=== PATIENT | male | born 1980 | race Caucasian/White ===

== ENCOUNTER 2019-12-31 17:04 | Emergency (ER) | payer OTHER, SELFPAY ==
[2019-12-31] VITALS (8 sets, daily range): BP systolic 92–125; BP diastolic 55–82; PULSE 60–89; RESP 14–20; TEMP 37.2; O2SAT 90–98; BMI 31.5
--- NOTE | 2019-12-31 18:54 | XR_ITS ---
WS: [id number] PORTABLE CHEST HISTORY: cough COMPARISON: None available. Patchy opacifications are noted in the periphery of the central LEFT lung and also in the central RIG HT lung. No pleural effusion or pneumothorax. Cardiac size: Normal. Mediastinum/Aorta: Normal mediastinum. No osseous abnormality seen. XR/XR chest 1V portable [id number] IMPRESSION: Bilateral pulmonary opacifications, LEFT greater than RIGHT. Consistent with pn eumonitis.
--- NOTE | 2019-12-31 18:54 | W.ED.GENADLT ---
Documented by User: Lorenzo Schaefer DO 01/02/20 06:31 HPI - General Adult General: Chief complaint: General Medical Stated complaint: CHILLS,N/V/D Time Seen by Provider: 12/31/19 18:28 History of Present Illness: HPI narrative: 39-year-old male comes in complaining of shortness of breath and cough muscle aches diarrhea for the last 8 days. Definitive yesterday were 7 difficult time keeping food down. He is not in any hemoptysis he has had a little bit of a low-grade fever as well. He is not had any known exposures. Onset (ago): day(s) Location: chest Severity: moderate Relieving factors: none Exacerbating factors: none Associated symptoms: Reports cough, diaphoresis, decreased appetite, dyspnea, fevers/chills, headache(s), malaise, nausea, weakness and other (Diarrhea); Deny chest pain, confusion, rash, palpitations, seizures, short of breath, syncope or vomiting Treatments prior to arrival: none Review of Systems Const: Reports: malaise and diaphoresis ENMT: Denies: throat pain, ear or mastoid pain, nasal discharge or nasal congestion Card: Denies: chest pain, palpitations or syncope Resp: Reports: dyspnea GI: Reports: nausea; Denies: vomiting : Denies: flank pain, dysuria, urinary frequency or urinary urgency Skin/Breast: Denies: rash Neuro: Reports: headache(s); Denies: confusion PFS ED PFSH: Medical History Appendicitis Physical Exam Const: COMMON NORMALS: no acute distress GENERAL APPEARANCE: cooperative and comfortable ORIENTATION/CONSCIOUSNESS: Yes awake, Yes oriented to person, Yes oriented to place and Yes oriented to time HENMT: COMMON NORMALS: normocephalic, atraumatic and hearing grossly normal bilaterally HEAD & SCALP: normocephalic and atraumatic Eye: COMMON NORMALS: Equal, round and reactive pupils present, EOMs intact bilaterally, conjunctivae normal and no scleral icterus CONJUNCTIVA: Yes conjunctivae normal PUPIL: Yes Equal, round and reactive pupils present Neck/C-Spine: COMMON NORMALS: full ROM, no lymphadenopathy, supple and no JVD Lymph: LYMPHATIC: no lymphadenopathy noted and no lymphedema noted Resp: COMMON NORMALS: normal respiratory effort, No retractions, No use of accessory muscles and clear to auscultation bilaterally AUSCULTATION: clear to auscultation bilaterally Cardio: COMMON NORMALS: no JVD, regular rate, regular rhythm and No murmurs present (Cardio) RATE: regular rate RHYTHM: regular rhythm GI: COMMON NORMALS: Soft to palpation and No hepatosplenomegaly present AUSCULTATION: Yes normoactive bowel sounds PALPATION: Yes Soft to palpation, No Tenderness to palpation present (GI), No Guarding due to palpation present (GI) and Yes No hepatosplenomegaly present Extremity: COMMON NORMALS: normal to inspection, capillary refill normal, no clubbing, cyanosis or edema, no calf tenderness and no pedal edema Neuro: SENSORIUM/ORIENTATION: Yes oriented to person, Yes oriented to place and Yes oriented to time Skin: COMMON NORMALS: no rashes or lesions noted GENERAL SKIN EXAM: no rashes or lesions noted Course Vital Signs: Vital signs: Vital Signs Temperature 99.0 F 12/31/19 17:23 Pulse Rate 66 12/31/19 23:01 Respiratory Rate 16 12/31/19 23:01 Blood Pressure 99/58 12/31/19 23:01 Pulse Oximetry 98 12/31/19 23:01 MDM - General Adult MDM Narrative: Medical decision making narrative: Care turned over to Dr. Pinto at change of shift see his notes for final diagnosis and disposition. Lab Data: Labs: Lab Results 12/31/19 12/31/19 12/31/19 Range/Units 18:46 18:46 18:46 WBC (4.0-10.0) 10^3/ uL RBC (4.1-5.3) 10^6/u L Hgb (11.7-16.6) g/dL Hct (42.0-52.0) % MCV (80-94) fL MCH (28.0-34.0) pg MCHC (30.0-36.0) g/dL RDW (12.1-15.1) % Plt Count (130-400) 10^3/c mm MPV (7.4-10.4) fL Neut % (Auto) % Lymph % (Auto) % [place] % (Auto) % Eos % (Auto) % Baso % (Auto) % Neut # (Auto) (1.8-7.7) 10^3/u L Lymph # (Auto) (0.8-4.8) 10^3/u L [place] # (Auto) (0.2-0.9) 10^3/u L Eos # (Auto) (0.0-0.8) 10^3/u L Baso # (Auto) (0.0-0.1) 10^3/u L Nucleated RBC % (a uto) % Nucleated RBCs # /100WBC ABG pH (7.35-7.45) ABG pCO2 (35-45) mmHg ABG pO2 (80.0-100.0) mmH g ABG HCO3 (22-26) mmol/L ABG Base Excess (-2.0-2.0) mmol/ L Don Test Sodium (136-145) mmol/L Potassium (3.5-5.1) mmol/L Chloride (98-107) mmol/L Carbon Dioxide (22-29) mmol/L Anion Gap (5-19) BUN (6-20) mg/dL Creatinine (0.7-1.2) mg/dL GFR Calculation (90-130) mL/min Glucose (65-115) mg/dL Calculated Osmolal ity (285-295) mOsm/k g Lactic Acid (0.5-2.2) mmol/L Calcium (8.5-10.5) mg/dL Total Bilirubin (0.15-1.2) mg/dL AST (0-40) U/L ALT (0-41) U/L Alkaline Phosphata se (40-130) IU/L Lactate Dehydrogen ase (135-225) U/L C-Reactive Protein Total Protein (6.6-8.7) g/dL Albumin (3.5-5.2) g/dL Globulin (1.3-4.6) g/dL Lipase (13-60) U/L Procalcitonin Urine Color Yellow (Yellow) Urine Appearance Hazy A (CLEAR) Urine pH 5 (5-7) Ur Specific Gravit y 1.020 (1.005-1.030) Urine Protein Neg (Negative) Urine Glucose (UA) Norm (Normal) Urine Ketones 2+ H (Negative) Urine Blood Neg (Negative) Urine Nitrate Negative (Negative) Urine Bilirubin Neg (Negative) Urine Urobilinogen Norm (Negative) mg/dL Ur Leukocyte Yumiko ase Negative (Negative) Urine RBC 0-4 H (0-2) /hpf Urine WBC 0-4 H (0-5) /hpf Ur Squamous Epith Cells 0-4 H (0-5) /hpf Amorphous Sediment Not Reportable Urine Bacteria 1+ H (NONE) /hpf Urine Mucus 1+ /hpf SARS-CoV-2 RNA (RT -PCR) Cancelled SARS-CoV-2 Ag (Rap id) Positive H (Negative) 12/31/19 12/31/19 12/31/19 Range/Units 18:55 18:55 21:00 WBC 6.2 (4.0-10.0) 10^3/ uL RBC 5.26 (4.1-5.3) 10^6/u L Hgb 15.5 (11.7-16.6) g/dL Hct 47.7 (42.0-52.0) % MCV 90.7 (80-94) fL MCH 29.5 (28.0-34.0) pg MCHC 32.5 (30.0-36.0) g/dL RDW 12.5 (12.1-15.1) % Plt Count 156 (130-400) 10^3/c mm MPV 12.9 H (7.4-10.4) fL Neut % (Auto) 60.8 % Lymph % (Auto) 26.9 % [place] % (Auto) 11.2 % Eos % (Auto) 0.5 % Baso % (Auto) 0.3 % Neut # (Auto) 3.74 (1.8-7.7) 10^3/u L Lymph # (Auto) 1.7 (0.8-4.8) 10^3/u L [place] # (Auto) 0.7 (0.2-0.9) 10^3/u L Eos # (Auto) 0.0 (0.0-0.8) 10^3/u L Baso # (Auto) 0.0 (0.0-0.1) 10^3/u L Nucleated RBC % (a uto) 0 % Nucleated RBCs # 0.0 /100WBC ABG pH 7.38 (7.35-7.45) ABG pCO2 43.3 (35-45) mmHg ABG pO2 64.9 L (80.0-100.0) mmH g ABG HCO3 25.7 (22-26) mmol/L ABG Base Excess 0.3 (-2.0-2.0) mmol/ L Don Test P Sodium 136 (136-145) mmol/L Potassium 4.3 (3.5-5.1) mmol/L Chloride 96 L (98-107) mmol/L Carbon Dioxide 26 (22-29) mmol/L Anion Gap 18.3 (5-19) BUN 12 (6-20) mg/dL Creatinine 1.0 (0.7-1.2) mg/dL GFR Calculation 83.6 L (90-130) mL/min Glucose 103 (65-115) mg/dL Calculated Osmolal ity 278 L (285-295) mOsm/k g Lactic Acid (0.5-2.2) mmol/L Calcium 8.9 (8.5-10.5) mg/dL Total Bilirubin 0.8 (0.15-1.2) mg/dL AST 32 (0-40) U/L ALT 26 (0-41) U/L Alkaline Phosphata se 112 (40-130) IU/L Lactate Dehydrogen ase 267 H (135-225) U/L C-Reactive Protein Cancelled Total Protein 7.8 (6.6-8.7) g/dL Albumin 4.1 (3.5-5.2) g/dL Globulin 3.7 (1.3-4.6) g/dL Lipase 38 (13-60) U/L Procalcitonin Cancelled Urine Color (Yellow) Urine Appearance (CLEAR) Urine pH (5-7) Ur Specific Gravit y (1.005-1.030) Urine Protein (Negative) Urine Glucose (UA) (Normal) Urine Ketones (Negative) Urine Blood (Negative) Urine Nitrate (Negative) Urine Bilirubin (Negative) Urine Urobilinogen (Negative) mg/dL Ur Leukocyte Yumiko ase (Negative) Urine RBC (0-2) /hpf Urine WBC (0-5) /hpf Ur Squamous Epith Cells (0-5) /hpf Amorphous Sediment Urine Bacteria (NONE) /hpf Urine Mucus /hpf SARS-CoV-2 RNA (RT -PCR) SARS-CoV-2 Ag (Rap id) (Negative) 12/31/19 Range/Units 21:50 WBC (4.0-10.0) 10^3/ uL RBC (4.1-5.3) 10^6/u L Hgb (11.7-16.6) g/dL Hct (42.0-52.0) % MCV (80-94) fL MCH (28.0-34.0) pg MCHC (30.0-36.0) g/dL RDW (12.1-15.1) % Plt Count (130-400) 10^3/c mm MPV (7.4-10.4) fL Neut % (Auto) % Lymph % (Auto) % [place] % (Auto) % Eos % (Auto) % Baso % (Auto) % Neut # (Auto) (1.8-7.7) 10^3/u L Lymph # (Auto) (0.8-4.8) 10^3/u L [place] # (Auto) (0.2-0.9) 10^3/u L Eos # (Auto) (0.0-0.8) 10^3/u L Baso # (Auto) (0.0-0.1) 10^3/u L Nucleated RBC % (a uto) % Nucleated RBCs # /100WBC ABG pH (7.35-7.45) ABG pCO2 (35-45) mmHg ABG pO2 (80.0-100.0) mmH g ABG HCO3 (22-26) mmol/L ABG Base Excess (-2.0-2.0) mmol/ L Don Test Sodium (136-145) mmol/L Potassium (3.5-5.1) mmol/L Chloride (98-107) mmol/L Carbon Dioxide (22-29) mmol/L Anion Gap (5-19) BUN (6-20) mg/dL Creatinine (0.7-1.2) mg/dL GFR Calculation (90-130) mL/min Glucose (65-115) mg/dL Calculated Osmolal ity (285-295) mOsm/k g Lactic Acid 0.8 (0.5-2.2) mmol/L Calcium (8.5-10.5) mg/dL Total Bilirubin (0.15-1.2) mg/dL AST (0-40) U/L ALT (0-41) U/L Alkaline Phosphata se (40-130) IU/L Lactate Dehydrogen ase (135-225) U/L C-Reactive Protein Total Protein (6.6-8.7) g/dL Albumin (3.5-5.2) g/dL Globulin (1.3-4.6) g/dL Lipase (13-60) U/L Procalcitonin Urine Color (Yellow) Urine Appearance (CLEAR) Urine pH (5-7) Ur Specific Gravit y (1.005-1.030) Urine Protein (Negative) Urine Glucose (UA) (Normal) Urine Ketones (Negative) Urine Blood (Negative) Urine Nitrate (Negative) Urine Bilirubin (Negative) Urine Urobilinogen (Negative) mg/dL Ur Leukocyte Yumiko ase (Negative) Urine RBC (0-2) /hpf Urine WBC (0-5) /hpf Ur Squamous Epith Cells (0-5) /hpf Amorphous Sediment Urine Bacteria (NONE) /hpf Urine Mucus /hpf SARS-CoV-2 RNA (RT -PCR) SARS-CoV-2 Ag (Rap id) (Negative) Discharge Plan Discharge Patient Disposition: Home Clinical Impression: Viral pneumonitis, COVID-19 virus infection Condition: Stable Prescriptions: No Action ibuprofen 200 mg Tablet 400 - 600 mg PO PRN RF: 0 Nyquil See Rx Instructions .ROUTE .COMPLEX RF: 0 Discharge Orders: Discharge Order (Routine); Ordered 12/31/19 Ordered By: Anjali Chino Referrals: Alma Rosa Mercado DO [Physician] - 1-3 days Discharge Diet: Advance as tolerated Discharge Activity: Increase activity as tolerated Patient Instructions: Viral Pneumonia (ED) Activity Restrictions/Additional Instructions: Please return to the ER immediately for any of the signs or symptoms listed on your discharge instruction sheets, worsening/changing of your symptoms, you are not getting better as quickly as expected, or for ANY other cause or concerns. Keep yourself and quarantine at home away from others until you are cleared by your primary care physician or you can contact the health department about when they advise you to return back to work. Return to the ER for any worsening of your symptoms or for any other cause for concern. Discharge Date/Time: 12/31/19 23:03 Sign Out Sign Out Data: Patient Sign Out occurred on 12/31/19 at 19:44. Patient's care was discussed, and care was transferred from to Anjali Chino. Coding Level of Care Code ED Salt Maker for Chg Fwd Exam Comprehensive Documented by User: Anjali Chino 12/31/19 22:18 HPI - General Adult General: Chief complaint: General Medical Stated complaint: CHILLS,N/V/D Time Seen by Provider: 12/31/19 18:28 PFSH ED PFSH: Medical History Appendicitis Course Vital Signs: Vital signs: Vital Signs Temperature 99.0 F 12/31/19 17:23 Pulse Rate 66 12/31/19 23:01 Respiratory Rate 16 12/31/19 23:01 Blood Pressure 99/58 12/31/19 23:01 Pulse Oximetry 98 12/31/19 23:01 MDM - General Adult MDM Narrative: Medical decision making narrative: 2021 -Case turned over to me at change of shift from Dr. Schaefer. Please see his note for his history, physical exam and medical decision-making notes. This time the patient states he primarily just aches and hurts all over. He feels like he is dehydrated. Denies specifically headache, neck pain, chest pain, shortness of breath, belly pain or back pain. He states he just aches all over diffusely. I want to add some IV fluids, Tylenol and antiemetics for his symptoms. All labs are still pending at this time. 2214 -the patient is feeling much better and is ready to go home. His vital signs are stable. He is not hypoxic. His pulse ox will range as low as 93% at times but when resting he comes back up to 95% or above at all times. Chest x-ray is not remarkable. Patient feels like going home and he states he can quarantine himself there when he gets there. Go ahead and discharge him to follow-up with his regular doctor. Lab Data: Attestation: I reviewed the patient's lab results. Labs: Lab Results 12/31/19 12/31/19 12/31/19 Range/Units 18:46 18:46 18:46 WBC (4.0-10.0) 10^3/ uL RBC (4.1-5.3) 10^6/u L Hgb (11.7-16.6) g/dL Hct (42.0-52.0) % MCV (80-94) fL MCH (28.0-34.0) pg MCHC (30.0-36.0) g/dL RDW (12.1-15.1) % Plt Count (130-400) 10^3/c mm MPV (7.4-10.4) fL Neut % (Auto) % Lymph % (Auto) % [place] % (Auto) % Eos % (Auto) % Baso % (Auto) % Neut # (Auto) (1.8-7.7) 10^3/u L Lymph # (Auto) (0.8-4.8) 10^3/u L [place] # (Auto) (0.2-0.9) 10^3/u L Eos # (Auto) (0.0-0.8) 10^3/u L Baso # (Auto) (0.0-0.1) 10^3/u L Nucleated RBC % (a uto) % Nucleated RBCs # /100WBC ABG pH (7.35-7.45) ABG pCO2 (35-45) mmHg ABG pO2 (80.0-100.0) mmH g ABG HCO3 (22-26) mmol/L ABG Base Excess (-2.0-2.0) mmol/ L Don Test Sodium (136-145) mmol/L Potassium (3.5-5.1) mmol/L Chloride (98-107) mmol/L Carbon Dioxide (22-29) mmol/L Anion Gap (5-19) BUN (6-20) mg/dL Creatinine (0.7-1.2) mg/dL GFR Calculation (90-130) mL/min Glucose (65-115) mg/dL Calculated Osmolal ity (285-295) mOsm/k g Lactic Acid (0.5-2.2) mmol/L Calcium (8.5-10.5) mg/dL Total Bilirubin (0.15-1.2) mg/dL AST (0-40) U/L ALT (0-41) U/L Alkaline Phosphata se (40-130) IU/L Lactate Dehydrogen ase (135-225) U/L C-Reactive Protein Total Protein (6.6-8.7) g/dL Albumin (3.5-5.2) g/dL Globulin (1.3-4.6) g/dL Lipase (13-60) U/L Procalcitonin Urine Color Yellow (Yellow) Urine Appearance Hazy A (CLEAR) Urine pH 5 (5-7) Ur Specific Gravit y 1.020 (1.005-1.030) Urine Protein Neg (Negative) Urine Glucose (UA) Norm (Normal) Urine Ketones 2+ H (Negative) Urine Blood Neg (Negative) Urine Nitrate Negative (Negative) Urine Bilirubin Neg (Negative) Urine Urobilinogen Norm (Negative) mg/dL Ur Leukocyte Yumiko ase Negative (Negative) Urine RBC 0-4 H (0-2) /hpf Urine WBC 0-4 H (0-5) /hpf Ur Squamous Epith Cells 0-4 H (0-5) /hpf Amorphous Sediment Not Reportable Urine Bacteria 1+ H (NONE) /hpf Urine Mucus 1+ /hpf SARS-CoV-2 RNA (RT -PCR) Cancelled SARS-CoV-2 Ag (Rap id) Positive H (Negative) 12/31/19 12/31/19 12/31/19 Range/Units 18:55 18:55 21:00 WBC 6.2 (4.0-10.0) 10^3/ uL RBC 5.26 (4.1-5.3) 10^6/u L Hgb 15.5 (11.7-16.6) g/dL Hct 47.7 (42.0-52.0) % MCV 90.7 (80-94) fL MCH 29.5 (28.0-34.0) pg MCHC 32.5 (30.0-36.0) g/dL RDW 12.5 (12.1-15.1) % Plt Count 156 (130-400) 10^3/c mm MPV 12.9 H (7.4-10.4) fL Neut % (Auto) 60.8 % Lymph % (Auto) 26.9 % [place] % (Auto) 11.2 % Eos % (Auto) 0.5 % Baso % (Auto) 0.3 % Neut # (Auto) 3.74 (1.8-7.7) 10^3/u L Lymph # (Auto) 1.7 (0.8-4.8) 10^3/u L [place] # (Auto) 0.7 (0.2-0.9) 10^3/u L Eos # (Auto) 0.0 (0.0-0.8) 10^3/u L Baso # (Auto) 0.0 (0.0-0.1) 10^3/u L Nucleated RBC % (a uto) 0 % Nucleated RBCs # 0.0 /100WBC ABG pH 7.38 (7.35-7.45) ABG pCO2 43.3 (35-45) mmHg ABG pO2 64.9 L (80.0-100.0) mmH g ABG HCO3 25.7 (22-26) mmol/L ABG Base Excess 0.3 (-2.0-2.0) mmol/ L Don Test P Sodium 136 (136-145) mmol/L Potassium 4.3 (3.5-5.1) mmol/L Chloride 96 L (98-107) mmol/L Carbon Dioxide 26 (22-29) mmol/L Anion Gap 18.3 (5-19) BUN 12 (6-20) mg/dL Creatinine 1.0 (0.7-1.2) mg/dL GFR Calculation 83.6 L (90-130) mL/min Glucose 103 (65-115) mg/dL Calculated Osmolal ity 278 L (285-295) mOsm/k g Lactic Acid (0.5-2.2) mmol/L Calcium 8.9 (8.5-10.5) mg/dL Total Bilirubin 0.8 (0.15-1.2) mg/dL AST 32 (0-40) U/L ALT 26 (0-41) U/L Alkaline Phosphata se 112 (40-130) IU/L Lactate Dehydrogen ase 267 H (135-225) U/L C-Reactive Protein Cancelled Total Protein 7.8 (6.6-8.7) g/dL Albumin 4.1 (3.5-5.2) g/dL Globulin 3.7 (1.3-4.6) g/dL Lipase 38 (13-60) U/L Procalcitonin Cancelled Urine Color (Yellow) Urine Appearance (CLEAR) Urine pH (5-7) Ur Specific Gravit y (1.005-1.030) Urine Protein (Negative) Urine Glucose (UA) (Normal) Urine Ketones (Negative) Urine Blood (Negative) Urine Nitrate (Negative) Urine Bilirubin (Negative) Urine Urobilinogen (Negative) mg/dL Ur Leukocyte Yumiko ase (Negative) Urine RBC (0-2) /hpf Urine WBC (0-5) /hpf Ur Squamous Epith Cells (0-5) /hpf Amorphous Sediment Urine Bacteria (NONE) /hpf Urine Mucus /hpf SARS-CoV-2 RNA (RT -PCR) SARS-CoV-2 Ag (Rap id) (Negative) 12/31/19 Range/Units 21:50 WBC (4.0-10.0) 10^3/ uL RBC (4.1-5.3) 10^6/u L Hgb (11.7-16.6) g/dL Hct (42.0-52.0) % MCV (80-94) fL MCH (28.0-34.0) pg MCHC (30.0-36.0) g/dL RDW (12.1-15.1) % Plt Count (130-400) 10^3/c mm MPV (7.4-10.4) fL Neut % (Auto) % Lymph % (Auto) % [place] % (Auto) % Eos % (Auto) % Baso % (Auto) % Neut # (Auto) (1.8-7.7) 10^3/u L Lymph # (Auto) (0.8-4.8) 10^3/u L [place] # (Auto) (0.2-0.9) 10^3/u L Eos # (Auto) (0.0-0.8) 10^3/u L Baso # (Auto) (0.0-0.1) 10^3/u L Nucleated RBC % (a uto) % Nucleated RBCs # /100WBC ABG pH (7.35-7.45) ABG pCO2 (35-45) mmHg ABG pO2 (80.0-100.0) mmH g ABG HCO3 (22-26) mmol/L ABG Base Excess (-2.0-2.0) mmol/ L Don Test Sodium (136-145) mmol/L Potassium (3.5-5.1) mmol/L Chloride (98-107) mmol/L Carbon Dioxide (22-29) mmol/L Anion Gap (5-19) BUN (6-20) mg/dL Creatinine (0.7-1.2) mg/dL GFR Calculation (90-130) mL/min Glucose (65-115) mg/dL Calculated Osmolal ity (285-295) mOsm/k g Lactic Acid 0.8 (0.5-2.2) mmol/L Calcium (8.5-10.5) mg/dL Total Bilirubin (0.15-1.2) mg/dL AST (0-40) U/L ALT (0-41) U/L Alkaline Phosphata se (40-130) IU/L Lactate Dehydrogen ase (135-225) U/L C-Reactive Protein Total Protein (6.6-8.7) g/dL Albumin (3.5-5.2) g/dL Globulin (1.3-4.6) g/dL Lipase (13-60) U/L Procalcitonin Urine Color (Yellow) Urine Appearance (CLEAR) Urine pH (5-7) Ur Specific Gravit y (1.005-1.030) Urine Protein (Negative) Urine Glucose (UA) (Normal) Urine Ketones (Negative) Urine Blood (Negative) Urine Nitrate (Negative) Urine Bilirubin (Negative) Urine Urobilinogen (Negative) mg/dL Ur Leukocyte Yumiko ase (Negative) Urine RBC (0-2) /hpf Urine WBC (0-5) /hpf Ur Squamous Epith Cells (0-5) /hpf Amorphous Sediment Urine Bacteria (NONE) /hpf Urine Mucus /hpf SARS-CoV-2 RNA (RT -PCR) SARS-CoV-2 Ag (Rap id) (Negative) Imaging Data^: CXR: Attestation: I personally reviewed and interpreted this imaging study as follows: My impression: No acute cardiopulmonary findings. Discharge Plan Discharge Patient Disposition: Home Clinical Impression: Viral pneumonitis, COVID-19 virus infection Condition: Stable Prescriptions: No Action ibuprofen 200 mg Tablet 400 - 600 mg PO PRN RF: 0 Nyquil See Rx Instructions .ROUTE .COMPLEX RF: 0 Discharge Orders: Discharge Order (Routine); Ordered 12/31/19 Ordered By: Anjali Chino Referrals: Alma Rosa Mercado DO [Physician] - 1-3 days Discharge Diet: Advance as tolerated Discharge Activity: Increase activity as tolerated Patient Instructions: Viral Pneumonia (ED) Activity Restrictions/Additional Instructions: Please return to the ER immediately for any of the signs or symptoms listed on your discharge instruction sheets, worsening/changing of your symptoms, you are not getting better as quickly as expected, or for ANY other cause or concerns. Keep yourself and quarantine at home away from others until you are cleared by your primary care physician or you can contact the health department about when they advise you to return back to work. Return to the ER for any worsening of your symptoms or for any other cause for concern. Discharge Date/Time: 12/31/19 23:03 Sign Out Sign Out Data: Patient Sign Out occurred on 12/31/19 at 19:44. Patient's care was discussed, and care was transferred from to Anjali Chino. Coding Level of Care Code ED Salt Maker for Chg Fwd Exam Comprehensive
[2019-12-31 20:04] LABS: Add Urine Microscopic? YES; Bilirubin Urine Neg (Negative); Blood Urine Neg (Negative); Glucose Urine UA Norm (Normal); Ketones Urine 2+ (Negative); Leukocyte Esterase Urine Negative (Negative); Nitrate Urine Negative (Negative); Protein Urine Neg (Negative); Urine Appearance Hazy (CLEAR); Urine Color Yellow (Yellow); Urobilinogen Urine Norm (Negative); pH Urine 5 (5-7)
[2019-12-31] MEDS: ondansetron 2 mg/ML SDV 2 mL 4 MG IVP (20:29)
[2019-12-31] MEDS: sodium chloride 0.9% 1,000 ML 999 ML IV ×2 (20:30)
[2019-12-31 20:41] LABS: SARS Covid-2 Antigen Positive (Negative)
[2019-12-31 20:46] LABS: Alanine Aminotransferase 26 U/L (0-41); Albumin Level 4.1 g/dL (3.5-5.2); Alkaline Phosphatase 112 IU/L (40-130); Blood Urea Nitrogen 12 mg/dL (6-20); Calcium 8.9 mg/dL (8.5-10.5); Carbon Dioxide 26 mmol/L (22-29); Chloride 96 mmol/L (98-107); Globulin 3.7 g/dL (1.3-4.6); Glomerular Filtration Rate 83.6 mL/min (90-130); Glucose 103 mg/dL (65-115); Lipase 38 U/L (13-60); Osmolality Calculated 278 mOsm/kg (285-295); Sodium 136 mmol/L (136-145); Total Bilirubin 0.8 mg/dL (0.15-1.2); Total Protein 7.8 g/dL (6.6-8.7)
[2019-12-31 20:54] LABS: Bacteria Urine 1+ /hpf; Mucus Urine 1+ /hpf; RBC Urine 0-4 /hpf (0-2); Squamous Epithelial Cell Urine 0-4 /hpf (0-5); WBC Urine 0-4 /hpf (0-5)
[2019-12-31 21:00] LABS: Anion Gap 18.3 (5-19); Aspartate Amino Transferase 32 U/L (0-40); Lactate Dehydrogenase 267 U/L (135-225); Potassium 4.3 mmol/L (3.5-5.1)
[2019-12-31 21:08] LABS: Basophils % 0.3 %; Eosinophils % 0.5 %; Hematocrit 47.7 % (42.0-52.0); Hemoglobin 15.5 g/dL (11.7-16.6); Lymphocytes # 1.7 10^3/uL (0.8-4.8); Lymphocytes % 26.9 %; Mean Corpuscular HGB Conc 32.5 g/dL (30.0-36.0); Mean Corpuscular Hemoglobin 29.5 pg (28.0-34.0); Mean Corpuscular Volume 90.7 fL (80-94); Mean Platelet Volume 12.9 fL (7.4-10.4); Monocytes # 0.7 10^3/uL (0.2-0.9); Monocytes % 11.2 %; Neutrophils # 3.74 10^3/uL (1.8-7.7); Neutrophils % 60.8 %; Nucleated Red Blood Cells % 0 %; Platelet Count 156 10^3/cmm (130-400); Red Blood Count 5.26 10^6/uL (4.1-5.3); Red Cell Distribution Width 12.5 % (12.1-15.1); White Blood Count 6.2 10^3/uL (4.0-10.0)
[2019-12-31 21:18] LABS: ABG PCO2 43.3 mmHg (35-45); ABG PH Result 7.38 (7.35-7.45)
[2019-12-31 21:19] LABS: Base Excess ABG 0.3 mmol/L (-2.0-2.0); Blood Gas Allen Test P; HCO3 ABG 25.7 mmol/L (22-26); PO2 ABG 64.9 mmHg (80.0-100.0)
[2019-12-31] MEDS: dexamethasone 10 mg/mL INJ IVP (21:48)
[2019-12-31] MEDS: ketorolac 30 mg/mL INJ 10 MG IVP (21:49)
[2019-12-31 22:32] LABS: Lactic Sepsis W/Reflex 0.8 mmol/L (0.5-2.2)
[2020-01-02 07:37] LABS: Arterial Blood Gas Hematocrit 44.8 % (42-52); Blood Gas Operator Identificat PE; Blood Gas Sample Site RR; Blood Gas Sample Type ARTERIAL
--- NOTE | 2020-01-02 09:12 | PC.NURSE ---
1 of 4 culture bottles gram negative rods. preliminary results given to Dr. Schaefer
== END 2019-12-31 23:03 | disposition home or self-care (01) ==
PROVIDERS: Emergency Medicine; Family Medicine; Emergency Provider Emergency Medicine
DX: U07.1 COVID-19 (principal); J12.89 Other viral pneumonia
CPT/HCPCS: 12345; 36600; 71045; 80053; 81001; 82803; 83605; 83615; 83690; 85025; 87040; 87205; 87426; 96361; 96374; 96375; 99283; 99284; J0131; J1100; J1885; J2405; J7030

== ENCOUNTER 2024-05-23 18:08 | Emergency (ER) | payer OTHER, SELFPAY ==
[2024-05-23 18:22] VITALS: BP 170/89; PULSE 75; RESP 17; TEMP 36.6; O2SAT 95; BMI 34.7
--- NOTE | 2024-05-23 18:48 | USR_ITS ---
PROCEDURE INFORMATION: Exam: US Scrotum Exam date and time: 05/23/2024 7:44 PM Age: 43 years old Clinical indication: Scrotum pain; Right scrotal pain x 2 days; Additional info: Swelling/pain TECHNIQUE: Imaging protocol: Real-time ultrasound of the scrotum and contents with color Doppler and image documentation. COMPARISON: No relevant prior studies available. FINDINGS: Right testicle: Normal. No mass. Normal color Doppler and arterial waveforms. No torsion. Left testicle: Normal. No mass. Normal color Doppler and arterial waveforms. No torsion. Epididymides: Normal. Scrotum/soft tissues: Small to moderate right hydrocele. US/US scrotum [id number] IMPRESSION: 1. Testicles appear within normal limits with color blood flow bilaterally. 2. Small to moderate right hydrocele.
[2024-05-23 18:55] LABS: Bilirubin Urine Negative (Negative); Blood Urine Negative (Negative); Glucose Urine UA Negative (Normal); Ketones Urine Negative (Negative); Leukocyte Esterase Urine Negative (Negative); Nitrate Urine Negative (Negative); Protein Urine Negative (Negative); Urine Appearance Cloudy (CLEAR); Urine Color Yellow (Yellow); pH Urine 6.5 (5-7)
[2024-05-23 19:00] LABS: Add Urine Microscopic? YES; Bacteria Urine None Seen /hpf; Hyaline Casts Urine 2.05 /lpf; RBC Urine 0-2 /hpf (0-2); Squamous Epithelial Cell Urine 0-5 /hpf (0-5); WBC Urine 0-5 /hpf (0-5)
--- NOTE | 2024-05-23 20:49 | ED_ITS ---
HPI - Male Genitourinary General: Chief complaint: Urogenital-Male Stated complaint: swollen genital area Time Seen by Provider: 05/23/24 20:10 Source: patient Mode of arrival: ambulatory Limitations: no limitations History of Present Illness: Patient is a 43-year-old male presents to ED today with complaint of right sided scrotal/testicular pain that began approximately 3 to 4 days ago. Patient sta guillaume he was at work and lifting something heavy when he immediately felt something to the right testicle. He has some point was seen at a walk-in clinic and prescribed Naproxen as well as Bactrim. Patient continues to have pain thus prompting his emergency evaluation. Patient is not having any penile discharge or burning with urination. No new sexual partners or concern for STIs. He has not noticed any significant redness or warmth. He does have swelling. MD Complaint: testicle pain and testicle swelling Onset (ago): day(s) Duration: constant Location: right testicle Severity: moderate Quality: aching Relieving factors: none Exacerbating factors: none Associated symptoms: Reports no associated symptoms; Deny dysuria or urinary incontinence Related Data Home Medications ?Medication ?Instructions ?Recorded ?Confirmed Nyquil See Rx Instructions .Route . COMPLEX 12/31/19 05/23/24 ibuprofen 200 mg tablet 400 - 600 mg PO PRN 12/31/19 05/23/24 Previous Rx's ?Medication ?Instructions ?Recorded naproxen 500 mg tablet 500 mg PO BID #30 tabs 05/23 sulfamethoxazole 800 1 tab PO Q12H #20 tabs 05/23 mg-trimethoprim 160 mg tablet (Bactrim DS) Allergies Allergy/AdvReac Type Severity Reaction Status Date / Time No Known Allergies Allergy Verified 05/23/24 18:27 Review of Systems Const: Denies: fever(s), chills, body aches, fatigue or malaise GI: Denies: abdominal pain : Reports: testicular pain; Denies: flank pain, difficulty urinating, dysuria, urinary frequency, urinary urgency, urinary hesitancy, oliguria, urinary incontinence, genital lesions or penile discharge Musc: Denies: back pain PFSH ED PFSH: Medical History Appendicitis Social History (Reviewed 05/23/24 @ 20:57 by LATOYA Maurice Smoking and tobacco/nicotine status: unknown if used tobacco/nicotine Physical Exam Const: COMMON NORMALS: no acute distress, average body habitus, no limitations, healthy appearing, alert and well nourished GENERAL APPEARANCE: cooperative GI: COMMON NORMALS: Normal to inspection, nondistended, normoactive bowel sounds present, Soft to palpation, non-tender and no masses AUSCULTATION: Yes normoactive bowel sounds PALPATION: Yes Soft to palpation OTHER: no inguinal hernias appreciated : COMMON NORMALS: Yes no CVA tenderness BLADDER/KIDNEY EXAM: Yes no CVA tenderness PENIS: normal penis MEATUS: meatus normal SCROTUM: Yes testes descended bilaterally, No inguinal hernia, Yes Scrotal tenderness present, No erythematous and No ecchymosis TESTES: Yes testicular lie normal, Yes testicular swelling Testicular swelling laterality: right and Yes testicular tenderness Testicular tenderness laterality: right Back/Pelvis: COMMON NORMALS: no CVA tenderness Neuro: SENSORIUM/ORIENTATION: Yes alert Course Vital Signs: Vital signs: Vital Signs Temperature 97.8 F 05/23/24 18:22 Pulse Rate 75 05/23/24 18:22 Respiratory Rate 17 05/23/24 18:22 Blood Pressure 170/89 05/23/24 18:22 Pulse Oximetry 95 05/23/24 18:22 Oxygen Delivery Me thod Room Air 05/23/24 18:22 MDM - Male Medical Decision Making UA is normal. US showing normal-appearing testicles with blood flow bilaterally. Small to moderate right hydrocele noted. With history of trauma this could also be a hematocele. He does also state his accidentally struck him in the groin the day before reported injury at work. There is no life-threatening or emergent etiology at this time. Will have case management set him up with urology. Medical Records I reviewed the patient's medical records. Lab Data I reviewed the patient's lab results. Radiology Impressions Scrotum Ultrasound 05/23/24 18:48 IMPRESSION: 1. Testicles appear within normal limits with color blood flow bilaterally. 2. Small to moderate right hydrocele. Laboratory Results Urine Color Yellow (Yellow) 05/23/24 18:47 Urine Appearance Cloudy (CLEAR) A 05/23/24 18:47 Urine pH 6.5 (5-7) 05/23/24 18:47 Ur Specific [place] 1.020 (1.005-1.030) 05/23/24 18:47 Urine Protein Negative (Negative) 05/23/24 18:47 Urine Glucose (UA) Negative (Normal) 05/23/24 18:47 Urine Ketones Negative (Negative) 05/23/24 18:47 Urine Blood Negative (Negative) 05/23/24 18:47 Urine Nitrate Negative (Negative) 05/23/24 18:47 Urine Bilirubin Negative (Negative) 05/23/24 18:47 Urine Urobilinogen 1.0 mg/dL (Negative) 05/23/24 18:47 Ur Leukocyte Esterase Negative (Negative) 05/23/24 18:47 Urine RBC 0-2 /hpf (0-2) 05/23/24 18:47 Urine WBC 0-5 /hpf (0-5) 05/23/24 18:47 Ur Squamous Epith Cells 0-5 /hpf (0-5) 05/23/24 18:47 Amorphous Sediment Not Reportable 05/23/24 18:47 Urine Bacteria None seen /hpf (NONE) 05/23/24 18:47 Hyaline Casts 2.05 /lpf 05/23/24 18:47 All radiology interpretation(s) finalized by discharge Discharge Plan Discharge Patient Disposition: Home Clinical Impression: Right hydrocele Condition: Stable Prescriptions: No Action sulfamethoxazole-trimethoprim [Bactrim DS] 800-160 mg tablet 1 tab PO Q12H Qty: 20 0RF naproxen 500 mg tablet 500 mg PO BID Qty: 30 0RF ibuprofen 200 mg Tablet 400 - 600 mg PO PRN Nyquil See Rx Instructions .ROUTE .COMPLEX Rx Instructions: prn pt states he last took sometime last week Discharge Orders: Discharge ED (Routine); Ordered 05/23/24 Ordered By: Letty Olivo Referrals: Desi Vega MD [Primary Care Provider] - Patient Instructions: Hydrocele, Testicle Pain (ED) Activity Restrictions/Additional Instructions: As we discussed we will have case management set you up with follow-up with urology for further evaluation management of your right scrotal/testicular pain. Ultrasound here showed a right-sided hydrocele. Given history of trauma this could also be a hematocele. At this time there is no emergent condition present and you are safe to follow-up outpatient. We discussed conservative therapies for discomfort at home until you can see urology. You may return to the emergency department at anytime for any further concerns you may have. Print Language: Wolof Coding Level of Care Code ED Compressor Station Operator for Priscilla Pack
[2024-05-23 21:22] VITALS: BP 130/93; PULSE 74; O2SAT 95
[2024-05-23 21:25] VITALS: BP 130/93; PULSE 74; O2SAT 95
== END 2024-05-23 21:26 | disposition home or self-care (01) ==
PROVIDERS: Emergency Provider Physician Assistant; PCP Family Medicine
DX: N43.3 Hydrocele, unspecified (principal)
CPT/HCPCS: 76870; 81001; 99284